=== PATIENT | female | born 1975 | race Caucasian/White ===

== ENCOUNTER 2021-12-21 15:30 | Emergency (ER) | payer OTHER ==
[~2021-12-21] VITALS: Ht 170.2 cm; Wt 65.8 kg
[2021-12-21] MEDS ORDERED: GABA300 (15:44)
[2021-12-21] MEDS ORDERED: CEPH500 PO (15:47)
== END 2021-12-21 15:47 | disposition home or self-care (01) ==
LOC: ER 15:30
DX: L03.115 Cellulitis of right lower limb (principal); Z88.0 Allergy status to penicillin; Z88.5 Allergy status to narcotic agent; Z91.040 Latex allergy status; Z91.018 Allergy to other foods; Z91.048 Other nonmedicinal substance allergy status; Z79.899 Other long term (current) drug therapy
CPT/HCPCS: 99281